=== PATIENT | female | born 1975 | race Caucasian/White ===

== ENCOUNTER 2016-12-31 20:20 | Emergency (ER) | payer SELFPAY ==
[~2016-12-31 20:20] MED LIST: BACTRIM DS 8001 TA1 PO; IBUPROFEN200 M1 PO; TYLENOL 325MG325 MG PO; ULTRAM 50MG TAB50 MG PO
[2016-12-31] MEDS ORDERED: CEPHALEXIN500 M1 PO (20:53)
[2016-12-31] MEDS ORDERED: TESSALON PERLE100 M1 PO (20:53)
== END 2016-12-31 21:10 | disposition home or self-care (01) ==
LOC: ED 20:20
CPT/HCPCS: J0696; J1885

== ENCOUNTER 2017-03-18 13:24 | Emergency (ER) | payer SELFPAY ==
[~2017-03-18] VITALS: Ht 162.6 cm; Wt 68.2 kg
[~2017-03-18 13:24] MED LIST changes: +CEPHALEXIN500 M1 PO; +TESSALON PERLE100 M1 PO
[2017-03-18] MEDS ORDERED: BACTRIM DS TAB1 EACH PO (14:13)
[2017-03-18 14:19] VITALS: BP 164/78
== END 2017-03-18 14:15 | disposition home or self-care (01) ==
LOC: ED 13:24
DX: L73.9 Follicular disorder, unspecified (principal); Z85.3 Personal history of malignant neoplasm of breast

== ENCOUNTER 2017-09-02 08:46 | Emergency (ER) | payer SELFPAY ==
[~2017-09-02] VITALS: Ht 162.6 cm; Wt 70.5 kg
[~2017-09-02 08:46] MED LIST changes: +BACTRIM DS TAB1 EACH PO
[2017-09-02] MEDS ORDERED: ADVIL 200MG TA200 MG PO (09:02)
[2017-09-02] MEDS ORDERED: NORCO 325 MG-51 TA1 PO (10:24)
[2017-09-02 10:39] VITALS: BP 139/73
== END 2017-09-02 11:03 | disposition home or self-care (01) ==
LOC: ED 08:46
DX: M25.562 Pain in left knee (principal); X50.1XXA Overexertion from prolonged static or awkward postures, initial encounter; Y92.003 Bedroom of unspecified non-institutional (private) residence as the place of occurrence of the external cause
CPT/HCPCS: J1885